=== PATIENT | female | born 1980 | race Caucasian/White ===

== ENCOUNTER 2018-07-03 15:46 | Inpatient (IN) | payer MEDICAID ==
[~2018-07-03] VITALS: Ht 160 cm; Wt 54.4 kg
[2018-07-03] MEDS ORDERED: NKM (15:57)
--- NOTE | 2018-07-03 16:00 | NUR ---
ED Nurse Note: Pt brought in by ambulance from home due to palpitation for 20 min, now comlpaining of chest pressure 8/10 and difficulty breathing, SAT 100% RA upon arrival; Per EMS, patient had SVT and Adenosine 6mg/12mg given en route to ER @ 1535. HR upon arrival 155, sinus tachycardia. AOx4, other VSS. Monitor attached, EKG at bedside. Will cont to monitor.
--- NOTE | 2018-07-03 16:01 | Emergency Room Report ---
History of Present Illness General Source: Patient, EMS Present Illness HPI Patient presents with racing heart, shortness of breath and chest pressure. This began less than an hour ago.. She's had palpitations in the past but never this prolonged period has a history of mitral valve prolapse. She's not taking medications at this time. Paramedics found with rapid heart rate in route 6 mg and then 12 mg of adenosine. Review of strips revealed that after the second dose the patient slowed and revealed sinus rhythm. This was transient. She states she has had some lower back pain. There is been no dysuria. She denies nausea vomiting diarrhea. Her last period was normal. She rarely drinks alcohol was not drinking heavily in the last few days. Allergies: Coded Allergies: PENICILLINS (Verified Allergy, Unknown, 07/03/18) Patient History Past Medical History: see triage record Social History: Reports: alcohol use - sambuco; Denies: smoking Social History Narrative with boyfriend Reviewed Nursing Documentation: PMH: Agreed; PSxH: Agreed Review of Systems All Other Systems: negative except mentioned in HPI Physical Exam Vital Signs Date Time Temp Pulse Resp B/P (MAP) Pulse Ox O2 Delivery O2 Flow Rate FiO2 07/03/18 15:51 96.6 157 20 151/73 99 Room Air Sp02 EP Interpretation: reviewed, normal General Appearance: well appearing, GCS 15 Head: normocephalic, atraumatic Eyes: bilateral eye normal inspection, bilateral eye PERRL ENT: moist mucus membranes Neck: supple Respiratory: lungs clear, normal breath sounds Cardiovascular #1: no edema, no murmur, tachycardia Cardiovascular #2: 2+ radial (R) Gastrointestinal: normal inspection, normal bowel sounds, non tender, no mass, non-distended Genitourinary: no CVA tenderness Musculoskeletal: back normal, normal range of motion, no calf tenderness, Shannon 's Sign negative Neurologic: alert, oriented x3, grossly normal Psychiatric: anxious Skin: normal inspection, warm/dry Medical Decision Making Diagnostic Impression: Primary Impression: Sepsis Qualified Codes: A41.9 - Sepsis, unspecified organism Additional Impressions: Pyelonephritis Hypokalemia Tachyarrhythmia History of mitral valve prolapse ER Course Patient presents with tachyarrhythmia. By review of EMS strips this appears to be sinus tachycardia. However differential for the etiology is dehydration, sepsis, pulmonary embolus, acute myocardial infarction, drug ingestion amongst others. She will be evaluated with EKG, chest x-ray and labs. In addition to that she will be treated with IV hydration. Initially there is a consideration of giving more adenosine here however review the strips revealed that there is only sinus rhythm after adenosine was given in the field. EKG with sinus tach. WBC elevated. Elevated Lactic acid. Pyuria. D dimer neg. Potassium is low. Sepsis re-eval. HR improving. BC ordered. Mentation normal. Good cap fill. 16:45 - antibiotics ordered. Potassium is administered IV and p.o. Improving. Repeat bolus with elevated lactic acid. Contact Dr. De La Paz for admission. Due to the persistent tachycardia patient is admitted to stepdown unit. Laboratory Tests Test 07/03/18 15:50 07/03/18 16:00 07/03/18 16:05 White Blood Count 12.9 K/UL (4.8-10.8) H Red Blood Count 4.12 M/UL (4.20-5.40) L Hemoglobin 11.5 G/DL (12.0-16.0) L Hematocrit 34.9 % (37.0-47.0) L Mean Corpuscular Volume 85 FL (80-99) Mean Corpuscular Hemoglobin 27.9 PG (27.0-31.0) Mean Corpuscular Hemoglobin Concent 32.9 G/DL (32.0-36.0) Red Cell Distribution Width 12.8 % (11.6-14.8) Platelet Count 270 K/UL (150-450) Mean Platelet Volume 9.9 FL (6.5-10.1) Neutrophils (%) (Auto) 61.7 % (45.0-75.0) Lymphocytes (%) (Auto) 28.4 % (20.0-45.0) Monocytes (%) (Auto) 7.5 % (1.0-10.0) Eosinophils (%) (Auto) 0.9 % (0.0-3.0) Basophils (%) (Auto) 1.4 % (0.0-2.0) Erythrocyte Sedimentation Rate 32 MM/HR (0-20) H Prothrombin Time 10.9 SEC (9.30-11.50) Prothrombin Time INR 1.0 (0.9-1.1) PTT 26 SEC (23-33) D-Dimer 0.33 mg/L FEU (0.00-0.49) Sodium Level 138 MMOL/L (136-145) Potassium Level 2.8 MMOL/L (3.5-5.1) L Chloride Level 105 MMOL/L (98-107) Carbon Dioxide Level 20 MMOL/L (21-32) L Anion Gap 13 mmol/L (5-15) Blood Urea Nitrogen 17 mg/dL (7-18) Creatinine 1.0 MG/DL (0.55-1.30) Estimate Glomerular Filtration Rate > 60 mL/min (>60) Glucose Level 116 MG/DL (74-106) H Calcium Level 8.4 MG/DL (8.5-10.1) L Magnesium Level 1.8 MG/DL (1.8-2.4) Total Bilirubin 0.4 MG/DL (0.2-1.0) Aspartate Amino Transferase (AST) 14 U/L (15-37) L Alanine Aminotransferase (ALT) 22 U/L (12-78) Alkaline Phosphatase 93 U/L (46-116) Total Creatine Kinase 91 U/L (26-308) Troponin I 0.009 ng/mL (0.000-0.056) Pro-B-Type Natriuretic Peptide 60 pg/mL (0-125) Total Protein 7.5 G/DL (6.4-8.2) Albumin 3.7 G/DL (3.4-5.0) Globulin 3.8 g/dL Thyroid Stimulating Hormone (TSH) 0.911 uiU/mL (0.358-3.740) Human Chorionic Gonadotropin, Qual Negative (NEGATIVE) Serum Alcohol < 3 mg/dL Urine Color Adrienne Urine Appearance Cloudy Urine pH 6 (4.5-8.0) Urine Specific [place] 1.015 (1.005-1.035) Urine Protein 2+ (NEGATIVE) H Urine Glucose (UA) Negative (NEGATIVE) Urine Ketones Negative (NEGATIVE) Urine Blood 2+ (NEGATIVE) H Urine Nitrite Negative (NEGATIVE) Urine Bilirubin Negative (NEGATIVE) Urine Ictotest Negative (NEGATIVE) Urine Urobilinogen Normal MG/DL (0.0-1.0) Urine Leukocyte Esterase 3+ (NEGATIVE) H Urine RBC 5-10 /HPF (0 - 2) H Urine WBC 40-60 /HPF (0 - 2) H Urine Squamous Epithelial Cells Many /LPF (NONE/OCC) H Urine Bacteria Many /HPF (NONE) H Urine Opiates Screen Negative (NEGATIVE) Urine Barbiturates Screen Negative (NEGATIVE) Phencyclidine (PCP) Screen Negative (NEGATIVE) Urine Amphetamines Screen Negative (NEGATIVE) Urine Benzodiazepines Screen Negative (NEGATIVE) Urine Cocaine Screen Negative (NEGATIVE) Urine Marijuana (THC) Screen Positive (NEGATIVE) H Lactic Acid Level 3.70 mmol/L (0.4-2.0) H EKG Diagnostic Results Rate: tachycardiac Rhythm: NSR ST Segments: no acute changes Rhythm Strip Diag. Results EP Interpretation: yes Rhythm: no PVC's, no ectopy, other - ST Chest X-Ray Diagnostic Results Chest X-Ray Diagnostic Results : Chest X-Ray Ordered: Yes # of Views/Limited/Complete: 1 View Indication: Other Interpretation: no consolidation, no effusion, no pneumothorax Impression: No acute disease Electronically Signed by: Electronically signed by Oscar Mcdaniel MD Status: improved Disposition: ADMITTED INPATIENT Condition: Serious Scripts No Active Prescriptions or Reported Meds Oscar Mcdaniel MD Jul 03, 2018 16:01
[2018-07-03 16:05] LABS: BASOPHILS % (AUTO) 1.4 % (0.0-2.0); EOSINOPHILS % (AUTO) 0.9 % (0.0-3.0); HEMATOCRIT 34.9 % (37.0-47.0); HEMOGLOBIN 11.5 G/DL (12.0-16.0); LYMPHOCYTES % (AUTO) 28.4 % (20.0-45.0); MEAN CORPUSCULAR VOLUME 85 FL (80-99); MONOCYTES % (AUTO) 7.5 % (1.0-10.0); NEUTROPHILS % (AUTO) 61.7 % (45.0-75.0); PLATELET COUNT 270 K/UL (150-450); RED BLOOD COUNT 4.12 M/UL (4.20-5.40); RED CELL DISTRIBUTION WIDTH 12.8 % (11.6-14.8); WHITE BLOOD COUNT 12.9 K/UL (4.8-10.8)
[2018-07-03 16:13] VITALS: BP 136/88
--- NOTE | 2018-07-03 16:15 | NUR ---
ED Nurse Note: Blood and urine collected and sent to lab.
[2018-07-03 16:19] LABS: APPEARANCE,URINE CLOUDY; BILIRUBIN, URINE NEGATIVE (NEGATIVE); COLOR,URINE AMBER; GLUCOSE, URINE (UA) NEGATIVE (NEGATIVE); KETONES,URINE NEGATIVE (NEGATIVE); LEUKOCYTE ESTERASE ,URINE 3+ (NEGATIVE); NITRITE,URINE NEGATIVE (NEGATIVE); PH,URINE 6 (4.5-8.0); PROTEIN,URINE 2+ (NEGATIVE); UROBILINOGEN,URINE NORMAL MG/DL (0.0-1.0)
[2018-07-03 16:20] LABS: ANION GAP 13 mmol/L (5-15); BLOOD UREA NITROGEN 17 mg/dL (7-18); CALCIUM 8.4 MG/DL (8.5-10.1); CARBON DIOXIDE 20 MMOL/L (21-32); CHLORIDE 105 MMOL/L (98-107); POTASSIUM 2.8 MMOL/L (3.5-5.1); SODIUM 138 MMOL/L (136-145)
[2018-07-03 16:34] LABS: ALANINE AMINOTRANSFERASE 22 U/L (12-78); ALBUMIN 3.7 G/DL (3.4-5.0); ALKALINE PHOSPHATASE 93 U/L (46-116); ASPARTATE AMINO TRANSFERASE 14 U/L (15-37); BILIRUBIN,TOTAL 0.4 MG/DL (0.2-1.0); CREATINE KINASE 91 U/L (26-308)
[2018-07-03] MEDS ORDERED: Cefepime HCl 1 GM in D5W 55 ML IVPB ONE (16:45)
[2018-07-03 17:36] VITALS: BP 128/68
--- NOTE | 2018-07-03 17:37 | NUR ---
ED Nurse Note: HR 127 lois, ERMD aware. Pt states she can breathe easily and chest pressure 7/10.
--- NOTE | 2018-07-03 17:48 | NUR ---
ED Nurse Note: Report given to RUTH Wheeler at ext [phone]. Pt to be transfered to room 244-1 per protocol,.
--- NOTE | 2018-07-03 18:00 | NUR ---
NURSE NOTES: Patient arrived to unit via gurney accompanied with RN. Report received from RUTH Perez from ED. Pt. is alert and oriented x 4 and verbally responsive. Denies pain at this time. IV site intact and patent. Belongings checked with patient. child monitor applied to the patient. Vitals checked with stable. Skin assessment done with no skin problems noted. Oriented to new room and environment. Bed in lowest position. Call light within reach. Will continue to monitor. Called and left message to Dr. De La Paz for admission orders. Awaiting for call back.
--- NOTE | 2018-07-03 18:08 | Diagnostic Imaging Report ---
EXAM: XR Chest, 1 View CLINICAL HISTORY: CP TECHNIQUE: Frontal view of the chest. COMPARISON: No relevant prior studies available. FINDINGS: Lungs: Unremarkable. No consolidation. Pleural space: Unremarkable. No pneumothorax. Heart: Unremarkable. No cardiomegaly. Mediastinum: Unremarkable. Bones/joints: Unremarkable. IMPRESSION: No acute cardiopulmonary disease.
[2018-07-03 18:35] VITALS: BP 118/72
[2018-07-03] MEDS ORDERED: cefTRIAXone 1 GM in D5W 55 ML IVPB SCH (19:00)
--- NOTE | 2018-07-03 19:35 | NUR ---
HAND-OFF: Report given to RUTH Almazan Stable condition.
--- NOTE | 2018-07-03 19:36 | NUR ---
NURSE NOTES: Received report from RUTH Wheeler. Patient seen in bed, alert, verbally responsive, able to make needs known. No respiratory distress noted in room air. denies any pain at this time. IV site to left AC 20g and right AC 20g is intact. Bed is in lowest position. call light is within easy reach. Boyfriend by bedside. will continue to monitor.
[2018-07-03 20:00] VITALS: BP 114/79
[2018-07-03] MEDS: cefTRIAXone 2gm/D5W 110ml IVPB SCH ×2 (20:21)
[2018-07-03] MEDS: D5 1/2NS w/KCl 40meq 1000ml 1,000 ML IV SCH (20:21)
[2018-07-03] MEDS ORDERED: Milk of Magnesia 30ml Ud ORAL PRN (21:00)
--- NOTE | 2018-07-03 23:50 | NUR ---
NURSE NOTES: Received report from RUTH Almazan. Pt is asleep and resting in bed. In no acute distress. Bed in lowest position, call light within reach. Will continue plan of care.
[2018-07-04] VITALS (7 sets, daily range): BP systolic 107–123; BP diastolic 55–80
[2018-07-04 06:05] LABS: ANION GAP 10 mmol/L (5-15); BLOOD UREA NITROGEN 10 mg/dL (7-18); CARBON DIOXIDE 21 MMOL/L (21-32); CHLORIDE 110 MMOL/L (98-107); CREATININE 0.9 MG/DL (0.55-1.30); POTASSIUM 3.7 MMOL/L (3.5-5.1); SODIUM 141 MMOL/L (136-145)
[2018-07-04] MEDS: D5 1/2NS w/KCl 40meq 1000ml 1,000 ML IV SCH (06:39)
--- NOTE | 2018-07-04 07:15 | NUR ---
HAND-OFF: Report given to RUTH Gil.
--- NOTE | 2018-07-04 10:22 | NUR ---
CASE MANAGEMENT: INITIAL REVIEW 07/03/2018 38 YO F BIBCoral FROM HOME CC: PALPITATIONS PMHx: MITRAL VALVE PROLAPSE SI:SEPSIS. PYELONEPHRITIS. T 96.6 HR 157 RR 20 B/P 151/73 SATS 99% ON RA WBC 12.9 K 2.8 CO2 20 GLU 116 CA 8.4 CA 8.4 AST 14 U TOX (+THC) IS: NS BOLUS X1 CEFEPIME IV X1 CIPRO IV X1 NS BOLUS X2 PATIENT ADMITTED TO [facility] 07/03/2018 @ 1736 DCP: PATIENT TO BE DISCHARGED TO HOME ONCE MEDICALLY CLEARED. PLAN OF CARE: ID CONSULT 07/04/2018 SI:SEPSIS. PYELONEPHRITIS. T 99 HR 72 RR 19 B/P 117/66 SATS 96% ON RA CL 110 CA 8 IS: IVF @ 100 mL/HR PEPCID PO QD CEFTRIAXONE IV Q24H [facility] STATUS DCP: PATIENT TO BE DISCHARGED TO HOME ONCE MEDICALLY CLEARED. Addendum: 07/04/18 at 1413 by Jessy Arboleda CM INTERQUAL MET FOR ACUTE
[2018-07-04] MEDS ORDERED: Tubing IV Secondary IV ONE (10:47)
--- NOTE | 2018-07-04 10:49 | NUR ---
HAND-OFF: Report given to Latanya Casey RN.
--- NOTE | 2018-07-04 10:50 | NUR ---
NURSE NOTES: Received patient from RUTH Gil. Patient awake, alert, and verbally responsive. monitoring tech in placed. In room air. Ambulatory. IV sites are asymptomatic. Bed in lowest position with side rails up. Will continue to follow plan of care.
--- NOTE | 2018-07-04 11:19 | History & Physical ---
History and Physical History & Physicial HP dictated # [id number] Ja De La Paz MD Jul 04, 2018 11:19
--- NOTE | 2018-07-04 15:30 | Consultation ---
Consult Note Consult Note Cardiology for Dr. Snider Full consult dictated # [id number] Assessment: SVT - ? AVNRT, AVRT vs atrial tachycardia. Recurrent brief palpitations in past, and now adm w/ SVT - terminating w/ adenosine REc: Continue telemetry. Will obtain ECHO ( hx MV prolapse in past). Would favor EP testing and catheter ablation for potential cure of her arrhythmia as outpt. treatment of UTI as per primary team. Amy Riley MD Jul 04, 2018 15:30
--- NOTE | 2018-07-04 17:00 | History and Physical Report ---
DATE OF ADMISSION: 07/03/2018 CHIEF COMPLAINT: Dizziness and palpitations. HISTORY OF PRESENT ILLNESS: This is a 38-year-old, pleasant female, who was in her usual state of health until yesterday. She was at home and she was felt all of a sudden dizzy and then her heart was racing. She felt as if she was intoxicated, although she has not had any alcohol. The paramedics were called. The patient was brought into the emergency room. She had also some shortness of breath and chest pressure. She apparently has also history of mitral valve prolapse, although she stated that her systems qa analyst checked her heart and could not find any problem including an event recorder. In the emergency room, it was not sure if she had only sinus tachycardia. The workup showed that she had urinary tract infection and she was admitted. PAST MEDICAL HISTORY: As mentioned, the patient has history of mitral valve prolapse. Otherwise, no history of heart problems. No lung disease. No history of diabetes or hypertension. MEDICATIONS: Medications on admission, none. SOCIAL HISTORY: The patient lives at home. She has three kids. She has a boyfriend, works on and off in [employer] service. No smoking. No history of alcohol abuse. ALLERGIES: No known drug allergies. REVIEW OF SYSTEMS: Noncontributory. PHYSICAL EXAMINATION: GENERAL: The patient is a pleasant female, in no acute distress. VITAL SIGNS: Blood pressure is 117/66, pulse 72, temperature 99, respiratory rate is 19. HEENT: [place] conjunctivae. Anicteric sclerae. NECK: Supple. LUNGS: Clear to auscultation. HEART: S1, S2 without murmurs or rubs. ABDOMEN: Soft and nontender. EXTREMITIES: No cyanosis or edema. LABORATORY FINDINGS: The CBC shows a WBC of 12,900, hematocrit is 34.9, hemoglobin is 11.5, and platelet is 207,000. Chemistry panel shows serum sodium of 141, potassium 3.7, chloride 110, BUN is 10, creatinine is 0.9. Hemoglobin A1c is 5.5, calcium is 8, magnesium 1.8. Note that the patient's potassium was 2.8 upon admission yesterday. ASSESSMENT: This is a 38-year-old female, who is admitted with episodes of palpitations, which was thought to be as a result of sinus tachycardia. She was significantly hypokalemic, which may have triggered that problem. It is unclear why she is hypokalemic. She denies history of alcohol abuse. Also nutritional arreola, she looks well-nourished. Nevertheless, hypomagnesium needs to be ruled out. She has UTI, which also could have caused her tachycardia from sepsis. PLAN: The patient was hydrated over night. Her potassium will be repleted with IV fluids. She was started on IV antibiotics. She will be transferred to telemetry. Cardiology consultation will be obtained. Currently, she is in [facility]. Labs will be followed and further adjustment will be made in the patient's regimen. Ja De La Paz M.D. DR: Iker JOB#: [id number] CC: RANDALL
--- NOTE | 2018-07-04 18:29 | Consultation ---
DATE OF CONSULTATION: 07/04/2018 CARDIOLOGY CONSULTATION CONSULTING PHYSICIAN: Amy Riley M.D. REQUESTING PHYSICIAN: Ja De La Paz M.D. REASON FOR CONSULTATION: SVT. HISTORY OF PRESENT ILLNESS: The patient is a 38-year-old woman with previous history of intermittent brief palpitations, who was admitted with SVT. She reports having felt fatigued and weak yesterday. She was sitting playing video games when she suddenly had sensation of rapid palpitations associated with dizziness. The paramedics were called and on their arrival, she was in narrow-complex tachycardia, rate of 180 beats per minute. She received 6 mg and then 12 mg of intravenous adenosine. After the 12-mg dose, the rhythm converted to normal sinus at a rate of 75 beats per minute. She was admitted for further treatment. She has been diagnosed with urinary tract infection. MEDICATIONS: Magnesium hydroxide 30 mL daily p.r.n., ceftriaxone sodium 2 g IV q.24 h., Pepcid 40 mg daily, Tylenol p.r.n. ALLERGIES: Penicillin. PAST MEDICAL HISTORY: As noted above. SOCIAL HISTORY: The patient is a nonsmoker. She drinks alcohol rarely and does not use any drugs. PHYSICAL EXAMINATION: VITAL SIGNS: Blood pressure is 123/66, pulse 80 beats per minute, respirations 20, afebrile, oxygen saturation 100%. HEENT: Normocephalic and atraumatic. Pupils are equal, round, and reactive to light. Sclerae anicteric. Oral mucosa are moist. NECK: Supple. There is no jugular venous distention. No thyromegaly. LUNGS: Clear to auscultation bilaterally. HEART: Regular rate and rhythm. S1, S2 with a 1/6 systolic ejection murmur heard at the lower left sternal border, nonradiating. No S3, S4, or rubs. ABDOMEN: Soft, nontender, and nondistended. No palpable mass. BACK: No flank tenderness. EXTREMITIES: No cyanosis, clubbing, or edema. A 2+ dorsalis pedis pulses bilaterally. NEUROLOGIC: Alert and oriented x3. No gross focal motor deficits. LABORATORY DATA: Potassium 3.7, BUN 10, creatinine 0.9. Troponin 0.009. Beta HCG negative. Hemoglobin 11.5, white blood count 12,900. Urinalysis, 3+ leukocyte esterase, 40-60 white blood cells, 5-10 red blood cells. Culture, gram-negative jeffrey, ID and sensitivity pending. EKG, telemetry strips from the paramedics show a narrow-complex tachycardia at 180-140 beats per minute which terminates to sinus rhythm, rate of 75 beats per minute with intravenous adenosine. EKG today shows sinus rhythm, rate of 79 beats per minute, axis +70 degrees, normal intervals, no delta wave, inverted T-wave in lead III. ASSESSMENT AND RECOMMENDATIONS: The patient is a 38-year-old woman with a long history of brief palpitations, who was admitted following an episode of SVT in the setting of urinary tract infection. This may have been an atrial tachycardia versus AV-sd reentrant tachycardia. There is also a possibility of an orthodromic tachycardia with a concealed bypass tract. Given her young age, I would favor electrophysiologic testing and radiofrequency catheter ablation for potential cure of her arrhythmia once she has been stabilized. The rhythm did convert with adenosine suggesting the AV node as one limb of the tachycardia circuit though some atrial tachycardias will terminate with adenosine as well. We will obtain an echo to evaluate left ventricular function. I would also favor electrophysiologic testing and catheter ablation for potential cure of her arrhythmia and this can be done as an outpatient. Thank you for allowing me to participate in her care. Amy Riley M.D. DR: uJlius JOB#: [id number] CC: Zac Snider M.D.; Fax#: [phone]
--- NOTE | 2018-07-04 19:25 | NUR ---
HAND-OFF: Report given to RUTH Guerrero and RUTH Silverio. Patient stable and in no apparent distress.
--- NOTE | 2018-07-04 19:26 | NUR ---
NURSE NOTES: Report received from RUTH Pelaez. Patient seen in bed resting, alert, verbally responsive, able to make needs known. denies any pain. On room air with no respiratory distress noted. IV site to left AC20g and right AC20g is intact. Bed is in lowest position. call light is within easy reach. Will continue to monitor.
[2018-07-04] MEDS: cefTRIAXone 2gm/D5W 110ml IVPB SCH ×2 (20:01)
[2018-07-05] VITALS: BP 120/81
[2018-07-05 04:00] VITALS: BP 130/68
[2018-07-05 06:09] LABS: BASOPHILS % (AUTO) 1.8 % (0.0-2.0); EOSINOPHILS % (AUTO) 1.5 % (0.0-3.0); LYMPHOCYTES % (AUTO) 17.7 % (20.0-45.0); MEAN CORPUSCULAR VOLUME 86 FL (80-99); MONOCYTES % (AUTO) 8.6 % (1.0-10.0); NEUTROPHILS % (AUTO) 70.3 % (45.0-75.0); PLATELET COUNT 171 K/UL (150-450); RED BLOOD COUNT 3.84 M/UL (4.20-5.40); RED CELL DISTRIBUTION WIDTH 13.5 % (11.6-14.8); WHITE BLOOD COUNT 5.2 K/UL (4.8-10.8)
[2018-07-05 06:33] LABS: ALANINE AMINOTRANSFERASE 27 U/L (12-78); ALBUMIN 3.3 G/DL (3.4-5.0); ALBUMIN/GLOBULIN RATIO 0.9 (1.0-2.7); ALKALINE PHOSPHATASE 93 U/L (46-116); ANION GAP 13 mmol/L (5-15); ASPARTATE AMINO TRANSFERASE 21 U/L (15-37); BILIRUBIN,TOTAL 0.3 MG/DL (0.2-1.0); BLOOD UREA NITROGEN 9 mg/dL (7-18); CALCIUM 8.7 MG/DL (8.5-10.1); CARBON DIOXIDE 22 MMOL/L (21-32); CHLORIDE 105 MMOL/L (98-107); POTASSIUM 4.2 MMOL/L (3.5-5.1); SODIUM 140 MMOL/L (136-145)
--- NOTE | 2018-07-05 07:08 | NUR ---
HAND-OFF: Report given to RUTH Pelaez.
--- NOTE | 2018-07-05 07:09 | NUR ---
NURSE NOTES: Received patient from RUTH Silverio and RUTH Guerrero. Patient in bed asleep. In room air. security monitor in placed. IV sites are asymptomatic. Bed in lowest position with side rails up, locked. Will continue to follow plan of care.
--- NOTE | 2018-07-05 07:30 | NUR ---
HAND-OFF: Report given to Divina Hodge RN.
[2018-07-05 08:00] VITALS: BP 132/65
--- NOTE | 2018-07-05 08:20 | NUR ---
NURSE NOTES: received pt in the bed, awake, alert, oriented, vital signs stable, no co chest pain, no SOB, abdomen soft, respiration regular, skin warm and dry to touch, intact, bed in low position, call light within reach.
[2018-07-05 12:00] VITALS: BP 115/76
--- NOTE | 2018-07-05 14:17 | General Progress Note ---
Assessment/Plan Problem List: (1) Tachyarrhythmia ICD Codes: R00.0 - Tachycardia, unspecified SNOMED: 2749547 (2) History of mitral valve prolapse ICD Codes: Z86.79 - Personal history of other diseases of the circulatory system SNOMED: 948705472 (3) Hypokalemia ICD Codes: E87.6 - Hypokalemia SNOMED: 57070392 (4) Sepsis ICD Codes: A41.9 - Sepsis, unspecified organism SNOMED: 72133184 Qualifiers: Qualified Codes: A41.9 - Sepsis, unspecified organism Assessment/Plan switch abxs to po tomorrow telemetry Discussed with dr Uriarte Needs ablation as outpt Subjective Allergies: Coded Allergies: PENICILLINS (Verified Allergy, Unknown, 07/03/18) Subjective feels better Objective Last 24 Hour Vital Signs Date Time Temp Pulse Resp B/P (MAP) Pulse Ox O2 Delivery O2 Flow Rate FiO2 07/05/18 12:00 Room Air 07/05/18 12:00 97.5 76 20 115/76 (89) 99 07/05/18 12:00 60 07/05/18 08:00 97.7 65 20 132/65 (87) 98 07/05/18 08:00 Room Air 07/05/18 04:00 Room Air 07/05/18 04:00 97.9 83 20 130/68 (88) 99 07/05/18 04:00 71 07/05/18 00:00 98.0 80 20 120/81 (94) 99 07/05/18 00:00 Room Air 07/04/18 23:17 67 07/04/18 20:00 87 07/04/18 20:00 98.4 83 20 116/71 (86) 98 07/04/18 20:00 Room Air 07/04/18 16:00 99.0 78 20 107/57 (74) 99 07/04/18 16:00 Room Air 07/04/18 15:36 90 Intake and Output 07/04/18 07/05/18 19:00 07:00 Intake Total 755 ml 350 ml Balance 755 ml 350 ml Intake Oral 420 ml 240 ml IV Total 335 ml 110 ml # Voids 5 2 # Bowel Movements 2 Laboratory Tests 07/05/18 03:20: White Blood Count 5.2#, Red Blood Count 3.84L, Hemoglobin 11.0L, Hematocrit 33.0L, Mean Corpuscular Volume 86, Mean Corpuscular Hemoglobin 28.6, Mean Corpuscular Hemoglobin Concent 33.3, Red Cell Distribution Width 13.5, Platelet Count 171, Mean Platelet Volume 9.8, Neutrophils (%) (Auto) 70.3, Lymphocytes (% ) (Auto) 17.7L, Monocytes (%) (Auto) 8.6, Eosinophils (%) (Auto) 1.5, Basophils (%) (Auto) 1.8, Sodium Level 140, Potassium Level 4.2, Chloride Level 105, Carbon Dioxide Level 22, Anion Gap 13, Blood Urea Nitrogen 9, Creatinine 1.0, Estimat Glomerular Filtration Rate > 60, Glucose Level 98, Calcium Level 8.7, Magnesium Level 1.9, Total Bilirubin 0.3, Aspartate Amino Transf (AST/SGOT) 21, Alanine Aminotransferase (ALT/SGPT) 27, Alkaline Phosphatase 93, Total Protein 6.9, Albumin 3.3L, Globulin 3.6, Albumin/Globulin Ratio 0.9L Height (Feet): 5 Height (Inches): 3.00 Weight (Pounds): 120 Cardiovascular: normal rate Respiratory/Chest: lungs clear Edema: no edema noted Generalized Ja De La Paz MD Jul 05, 2018 14:17
--- NOTE | 2018-07-05 15:22 | NUR ---
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 97.5 HR 76 RR 20 B/P 115/76 RA 98% IS: CEFTRIAXONE IV PEPCID PO MED/SURG STATUS
[2018-07-05 16:00] VITALS: BP 110/69
--- NOTE | 2018-07-05 18:15 | Consultation ---
DATE OF CONSULTATION: 07/05/2018 INFECTIOUS DISEASE CONSULTATION CONSULTING PHYSICIAN: Tom De La Paz M.D. PRIMARY ATTENDING PHYSICIAN: Ja De La Paz M.D. REASON FOR CONSULTATION: Sepsis, UTI. HISTORY OF PRESENT ILLNESS: The patient is a 38-year-old white female, admitted on 07/03/2018 from home complaining of palpitation. The patient has mitral valve prolapse and palpitation before, but at this time, it was much severe shortness of breath, chest pressure, and dizziness. She was found to have sinus tachycardia. In the hospital, her heart rate was 157. Before transfer to hospital the patient got 6 mg and then 12 mg of adenosine. PAST MEDICAL HISTORY: Significant for mitral valve prolapse. MEDICATIONS: Milk of magnesia, ceftriaxone, famotidine, and Tylenol. SOCIAL HISTORY: Lives at home. No history of drug, alcohol, or smoking. She has 3 kids. The patient is taking a lot of job stress recently. ALLERGIES: To penicillin. REVIEW OF SYSTEMS: No fever. No chills. No headache. She had on and off flank pain in both sides. No nausea. No vomiting. No problem passing urine. PHYSICAL EXAMINATION: VITAL SIGNS: Temperature is 97.6, pulse 76, and blood pressure is 115/76. GENERAL APPEARANCE: No acute distress. Seems to have normal weight. HEAD AND NECK: [place] conjunctivae. No oral lesion. HEART: S1 and S2. Regular. LUNGS: Clear. ABDOMEN: Soft. No CVA tenderness. EXTREMITIES: No edema. NEUROLOGIC: Awake, alert, and oriented. LABORATORY AND DIAGNOSTIC DATA: WBC at the time of admission was 12.9 and currently is 5.2, hemoglobin 11, hematocrit 33, and platelet is 171,000. Sodium 140, potassium 4.3, chloride 105, bicarbonate 22, BUN 9, creatinine 1, and glucose 98. Lactic acid was elevated at 3.7. Chest x-ray was negative. Urine culture growing E. coli that is sensitive to all antibiotics in the panel. Blood culture x2 negative. IMPRESSION: Sepsis with tachycardia, leukocytosis, and lactic acidosis. Source seems to be UTI. The patient has history of mitral valve prolapse and supraventricular tachycardia that is controlled. RECOMMENDATIONS: Continue with ceftriaxone. At the time of discharge, we will change the patient to Levaquin. At the end of my exam, I thank Dr. Ja De La Paz for involving me in the care of this patient. Tom De La Paz M.D. DR: LANDON JOB#: [id number] CC: RANDALL
--- NOTE | 2018-07-05 19:19 | NUR ---
HAND-OFF: Report given to JACKY MIRANDA.
--- NOTE | 2018-07-05 19:20 | NUR ---
NURSE NOTES: Received report from Keith RN, pt. in bed awake, A/O x's4- able to make needs known, no signs or symptoms of acute cardiac or respiratory distress noted, pt appears to be resting comfortably, pt. appears to be resting well on room air at 99%- no respiratory distress noted, bed in lowest position and call light within easy reach, bed alarm on side rails up x's 3- safety brakes engaged, safety, comfort measures provided, Left AC 20G IV intact and patent, safety measures continued, will continue with plan of care.
[2018-07-05 20:00] VITALS: BP 121/63
[2018-07-05] MEDS: cefTRIAXone 2gm/D5W 110ml IVPB SCH ×2 (20:48)
[2018-07-06 04:00] VITALS: BP 110/72
--- NOTE | 2018-07-06 07:14 | NUR ---
HAND-OFF: Report given to Keith Damon, pt. remains stable and no signs of distress noted.
[2018-07-06 08:00] VITALS: BP 126/80
--- NOTE | 2018-07-06 08:10 | NUR ---
NURSE NOTES: received pt in the bed, awake, alert, oriented, vital signs stable, no SOB, respiration regular, no co chest pain, skin warm and dry to touch, intact, tolerate diet well, bed in low position, call light within reach.
--- NOTE | 2018-07-06 11:19 | Cardiology Progress Note ---
Assessment/Plan Assessment/Plan atrial tachy vs svt responsive to adenosine hypokalemia uti / pyelonephritics mvp hs out pt eps / ablation fu with me in office in 1-2 weeks my office aware for her call for appoint Subjective Cardiovascular: Denies: chest pain, irregular heart rate, lightheadedness, palpitations Respiratory: Denies: shortness of breath, SOB with excertion Gastrointestinal/Abdominal: Denies: abdominal pain Genitourinary: Denies: burning Objective Last 24 Hour Vital Signs Date Time Temp Pulse Resp B/P (MAP) Pulse Ox O2 Delivery O2 Flow Rate FiO2 07/06/18 08:00 98.1 62 20 126/80 (95) 96 07/06/18 08:00 Room Air 07/06/18 08:00 63 07/06/18 04:00 Room Air 07/06/18 04:00 55 07/06/18 04:00 97.9 71 18 110/72 (85) 100 07/06/18 00:00 56 07/06/18 00:00 Room Air 07/05/18 21:10 97.9 07/05/18 20:00 61 07/05/18 20:00 97.5 70 19 121/63 (82) 99 07/05/18 20:00 Room Air 07/05/18 16:00 Room Air 07/05/18 16:00 60 07/05/18 16:00 97.9 59 18 110/69 (83) 99 07/05/18 12:00 Room Air 07/05/18 12:00 97.5 76 20 115/76 (89) 99 07/05/18 12:00 60 General Appearance: no apparent distress, alert Neck: supple Cardiovascular: normal rate, regular rhythm Respiratory/Chest: lungs clear, normal breath sounds Abdomen: normal bowel sounds, non tender, soft Extremities: no swelling Intake and Output 07/05/18 07/06/18 19:00 07:00 Intake Total 400 ml 220 ml Balance 400 ml 220 ml Intake Oral 400 ml IV Total 220 ml # Voids 3 2 # Bowel Movements 1 Microbiology Date/Time Source Procedure Growth Status 07/03/18 17:10 Blood Blood Culture - Preliminary NO GROWTH AFTER 48 HOURS Resulted 07/03/18 16:55 Blood Blood Culture - Preliminary NO GROWTH AFTER 48 HOURS Resulted 07/03/18 16:00 Urine,Clean Catch Urine Culture - Final Escherichia Coli Complete Zac Snider MD Jul 06, 2018 11:18
[2018-07-06 11:54] VITALS: BP 133/72
--- NOTE | 2018-07-06 14:41 | Infectious Diseases Prog Note ---
Assessment/Plan Assessment/Plan A: Sepsis with tachycardia, leukocytosis, and lactic acidosis. E. coli UTI. mitral valve prolapse supraventricular tachycardia P: Agree with discharge with PO Cipro X days Case was D/W primary MD Subjective ROS Limited/Unobtainable: No Constitutional: Reports: no symptoms Respiratory: Reports: no symptoms Cardiovascular: Reports: no symptoms Gastrointestinal/Abdominal: Reports: no symptoms Genitourinary: Reports: no symptoms Allergies: Coded Allergies: PENICILLINS (Verified Allergy, Unknown, 07/03/18) Objective Vital Signs Last 24 Hour Vital Signs Date Time Temp Pulse Resp B/P (MAP) Pulse Ox O2 Delivery O2 Flow Rate FiO2 07/06/18 14:21 97.0 07/06/18 12:00 65 07/06/18 12:00 Room Air 07/06/18 11:54 97.0 69 18 133/72 (92) 100 07/06/18 08:00 98.1 62 20 126/80 (95) 96 07/06/18 08:00 Room Air 07/06/18 08:00 63 07/06/18 04:00 Room Air 07/06/18 04:00 55 07/06/18 04:00 97.9 71 18 110/72 (85) 100 07/06/18 00:00 56 07/06/18 00:00 Room Air 07/05/18 20:00 61 07/05/18 20:00 97.5 70 19 121/63 (82) 99 07/05/18 20:00 Room Air 07/05/18 16:00 Room Air 07/05/18 16:00 60 07/05/18 16:00 97.9 59 18 110/69 (83) 99 Height (Feet): 5 Height (Inches): 3.00 Weight (Pounds): 120 General Appearance: no acute distress HEENT: mucous membranes moist Respiratory/Chest: lungs clear Cardiovascular: normal rate Abdomen: soft, non tender Extremities: no edema Neurologic/Psychiatric: alert, oriented x 3, responsive Microbiology Date/Time Source Procedure Growth Status 07/03/18 17:10 Blood Blood Culture - Preliminary NO GROWTH AFTER 48 HOURS Resulted 07/03/18 16:55 Blood Blood Culture - Preliminary NO GROWTH AFTER 48 HOURS Resulted 07/03/18 16:00 Urine,Clean Catch Urine Culture - Final Escherichia Coli Complete Current Medications Medications (Trade) Dose Ordered Sig/Sherlyn Route PRN Reason Start Time Stop Time Status Last Admin Dose Admin Acetaminophen (Tylenol) 650 mg Q4H PRN ORAL Mild Pain (Pain Scale 1-3) 07/03/18 19:00 08/02/18 18:59 07/06/18 13:51 Ciprofloxacin (Cipro 500mg tab) 500 mg EVERY 12 HOURS ORAL 07/06/18 21:00 07/13/18 20:59 Dextrose (Dextrose 50%) 25 ml Q30M PRN IV Hypoglycemia 07/03/18 19:00 08/02/18 18:59 Dextrose (Dextrose 50%) 50 ml Q30M PRN IV Hypoglycemia 07/03/18 19:00 08/02/18 18:59 Famotidine (Pepcid) 40 mg DAILY ORAL 07/03/18 19:30 08/02/18 19:29 07/06/18 08:36 Magnesium Hydroxide (Mom) 30 ml HSPRN PRN ORAL Constipation 07/03/18 21:00 08/02/18 20:59 Tom De La Paz MD Jul 06, 2018 14:41
--- NOTE | 2018-07-06 14:41 | General Progress Note ---
Assessment/Plan Problem List: (1) Tachyarrhythmia ICD Codes: R00.0 - Tachycardia, unspecified SNOMED: 8457171 (2) History of mitral valve prolapse ICD Codes: Z86.79 - Personal history of other diseases of the circulatory system SNOMED: 834978677 (3) Hypokalemia ICD Codes: E87.6 - Hypokalemia SNOMED: 15029902 (4) Sepsis ICD Codes: A41.9 - Sepsis, unspecified organism SNOMED: 61857433 Qualifiers: Qualified Codes: A41.9 - Sepsis, unspecified organism Assessment/Plan switch to cipro Discussed with RUTH Oreilly today Subjective Allergies: Coded Allergies: PENICILLINS (Verified Allergy, Unknown, 07/03/18) Subjective feels better Objective Last 24 Hour Vital Signs Date Time Temp Pulse Resp B/P (MAP) Pulse Ox O2 Delivery O2 Flow Rate FiO2 07/06/18 14:21 97.0 07/06/18 12:00 65 07/06/18 12:00 Room Air 07/06/18 11:54 97.0 69 18 133/72 (92) 100 07/06/18 08:00 98.1 62 20 126/80 (95) 96 07/06/18 08:00 Room Air 07/06/18 08:00 63 07/06/18 04:00 Room Air 07/06/18 04:00 55 07/06/18 04:00 97.9 71 18 110/72 (85) 100 07/06/18 00:00 56 07/06/18 00:00 Room Air 07/05/18 20:00 61 07/05/18 20:00 97.5 70 19 121/63 (82) 99 07/05/18 20:00 Room Air 07/05/18 16:00 Room Air 07/05/18 16:00 60 07/05/18 16:00 97.9 59 18 110/69 (83) 99 Intake and Output 07/05/18 07/06/18 19:00 07:00 Intake Total 400 ml 220 ml Balance 400 ml 220 ml Intake Oral 400 ml IV Total 220 ml # Voids 3 2 # Bowel Movements 1 Height (Feet): 5 Height (Inches): 3.00 Weight (Pounds): 120 Cardiovascular: normal rate Respiratory/Chest: lungs clear Edema: no edema noted Generalized Ja De La Paz MD Jul 06, 2018 14:41
[2018-07-06] MEDS ORDERED: Tubing IV Secondary IV ONE (15:29)
[2018-07-06] MEDS ORDERED: NS 275ml ONE (15:29)
--- NOTE | 2018-07-06 15:59 | NUR ---
NURSE NOTES: pt discharge home as ordered, condition stable, discharge instruction given, RX given.
[2018-07-06] MEDS ORDERED: Ciprofloxacin 500mg tab ORAL SCH (21:00)
--- NOTE | 2018-07-07 11:06 | Discharge Summary ---
Discharge Summary Discharge Summary _ Discharge summary DATE OF ADMISSION: 07/03/2018 DATE OF DISCHARGE: 07/06/2018 DISCHARGED BY: Dr. aJ De La Paz REASON FOR ADMISSION: 38 years old female with history of mitral valve prolapse, presented to emergency department with shortness of breath , chest pressure and racing heart. Symptoms started less than an hour ago. Patient reported palpitations in the past but never so prolonged. Paramedics found her with rapid heart rate, and en route patient received 6 mg and then 12 mg of adenosine. Review of strips revealed that after the second dose of adenosine patient's heart rate slowed and she converted to sinus rhythm. Upon evaluation in ED heart rate 157 ,blood pressure 151/73 ,no fever. Pulse oximetry was stable on room air . Laboratory workup revealed leukocytosis WBC 12.9 ,hemoglobin 11.5, hematocrit 24.9. Lactic acid was 3.7 D-dimer 0.33. Potassium 2.8. BUN 17 , creatinine 1.0. Troponin was negative , pro BNP 60 , EKG revealed sinus tachycardia, no acute ischemic changes . Urine test was negative Urinalysis revealed +2 protein, +2 blood, +3 leukocyte esterase ,pyuria and many bacteria. Urine toxicology screen was positive for marijuana . Serum alcohol level was negative. Chest x-ray revealed no acute cardiopulmonary pathology . Patient was given fluid challenge. Potassium was replaced . Patient pancultured , started on broad-spectrum antibiotics and t subsequently admitted to stepdown unit due to persistent tachycardia. CONSULTANTS: registered nurse renal Dr. Snider ID specialist Dr. Tom De La Paz [facility] COURSE: Patient admitted to stepdown unit. Patient was on IV fluids and empiric antibiotics. Cardiology and ID specialist consults were requested. Potassium was replaced. Manager Gyn closely followed. Patient was closely observed on telemetry. Heart rate stabilized . TSH within normal range. GI prophylaxis provided. Infectious disease specialist closely followed. Urine culture revealed E. coli. Blood cultures were negative. Antibiotic regimen optimized as per ID recommendation. Pain management was addressed as needed , symptomatic treatment provided. Patient clinically improved and was ready for discharge home . Antibiotic changed to oral, to complete the course as per ID specialist recommendations. Patient to follow-up with registered nurse renal office visit, as advised by registered nurse renal ,in 1-2 weeks. Recommended EP study/ablation FINAL DIAGNOSES: Atrial tachycardia versus supraventricular tachycardia, responsive to adenosine UTI/pyelonephritis with E. coli Sepsis due to UTI ( with tachycardia, leukocytosis, lactic acidosis ,and evidence of infection) Hypokalemia History of mitral valve prolapse DISCHARGE MEDICATIONS: See Medication Reconciliation list. DISCHARGE INSTRUCTIONS: Patient was discharged home . Follow up with primary care provider in one week. I have been assigned to dictate discharge summary for this account. I was not involved in the patient's management. Maria L Phillips NP Jul 07, 2018 11:06
--- NOTE | 2018-07-14 19:05 | Cardiology Report ---
APPROVED REPORT EKG Measurement Heart [id number] Sinus tachycardia Cannot rule out Inferior infarct, age undetermined Abnormal ECG
--- NOTE | 2018-07-15 14:27 | Cardiology Report ---
APPROVED REPORT EKG Measurement Heart [id number] Normal sinus rhythm Normal ECG
== END 2018-07-06 15:30 | disposition home or self-care (01) | DRG 720 ==
LOC: EDBD 15:46 → EMR 16:55 → EDBEDREQ 17:21 → EDBEDREQSVC 17:21 → 2W 17:36
DX: A41.9 Sepsis, unspecified organism (principal); I47.1 Supraventricular tachycardia; N12 Tubulo-interstitial nephritis, not specified as acute or chronic; N39.0 Urinary tract infection, site not specified; B96.20 Unspecified Escherichia coli [E. coli] as the cause of diseases classified elsewhere; E87.6 Hypokalemia; I34.1 Nonrheumatic mitral (valve) prolapse; Z88.0 Allergy status to penicillin
CPT/HCPCS: 36415; 71045; 80048; 80053; 80307; 80329; 81003; 82550; 83036; 83605; 83735; 83880; 84443; 84484; 84703; 85025; 85379; 85610; 85651; 85730; 87040; 87086; 87181; 93005; 96361; 96365; 96368; 99285; J8499